=== PATIENT | female | born 1935 ===

== ENCOUNTER 2021-11-27 05:54 | Observation (INO) ==
[~2021-11-27 05:54] MED LIST: HYDROmorphone 1 MG/1 ML SYRINGE IV PRN; Naloxone 0.4 mg VIAL 0.4 mg/ml 1 ml VIAL IV PRN; Ondansetron 4 mg VIAL 2 MG/ML 2 ml VIAL IV PRN; fentaNYL 100 mcg/2 ml 50 MCG/ML VIAL IV PRN
[2021-11-27] MEDS ORDERED: Buffered Lidocaine 1% SYRIN 1 ml INTRADERM ONE (06:00)
[2021-11-27] MEDS ORDERED: Lactated Ringers 1000 ml BAG 1,000 ML IV SCH ×2 (06:00→11:00)
[2021-11-27] MEDS ORDERED: ceFAZolin 2 GM PREMIX 2 GM/50 ML BAG ONE (06:20)
[2021-11-27 06:36] LABS: Activated Partial Thrombo Time 29.4 seconds (26.0-38.0); INR 0.87 (0.89-1.11)
[2021-11-27] MEDS ORDERED: Vancomycin 1,000 MG VIAL ONE (06:47)
[2021-11-27] MEDS ORDERED: Lidocaine 1% MPF 5 ML VIAL ONE (06:57)
[2021-11-27] MEDS ORDERED: Lidocaine 2% PF 5 ML VIAL ONE (07:00)
[2021-11-27] MEDS ORDERED: fentaNYL 250 mcg/5 ml 50 MCG/ML 5 ml VIAL (250 MCG) ONE (07:00)
[2021-11-27] MEDS ORDERED: Propofol 10 MG/ML 20 ML BTL ONE ×2 (07:00→09:10)
[2021-11-27] MEDS ORDERED: Dexamethasone IV 4 MG/ML VIAL 1 ml VIAL ONE (07:06)
[2021-11-27] MEDS ORDERED: ROPIVACAINE 5 MG/ML 30 ML BTL (0.5%) ONE (07:08)
[2021-11-27] MEDS ORDERED: ceFAZolin VIAL VIAL ONE (08:14)
[2021-11-27] MEDS ORDERED: Midazolam 2 mg/2 ml VIAL 1 mg/ml 2 ml VIAL (2 mg) ONE (09:25)
[2021-11-27] MEDS ORDERED: Ondansetron ODT 4 mg TAB 4 MG TAB PO PRN (10:30)
[2021-11-27] MEDS ORDERED: Lactulose 30 ml UDC PO PRN (10:30)
[2021-11-27] MEDS ORDERED: Magnesium Hydroxide LIQ 30 ML UDC PO PRN (10:30)
[2021-11-27] MEDS ORDERED: Ondansetron 4 mg VIAL 2 MG/ML 2 ml VIAL IV PRN (10:30)
[2021-11-27] MEDS ORDERED: fentaNYL 100 mcg/2 ml 50 MCG/ML VIAL ONE (11:21)
[2021-11-27] MEDS ORDERED: HYDROmorphone 1 MG/1 ML SYRINGE ONE (11:48)
[2021-11-27] MEDS: Morphine 2 MG/ML SYRINGE IV PRN (13:18)
[2021-11-27] MEDS: ceFAZolin 1 GM ADVAN 1 GM in NS 0.9% 50 ML 50 ML IVPB SCH ×2 (16:11→23:56)
[2021-11-27] MEDS: Magnesium Hydroxide LIQ 30 ML UDC PO SCH (20:15)
[2021-11-27] MEDS: Sodium Chloride 2% OPTH.SOL 15 ML BTL BOTH EYES SCH (22:06)
[2021-11-28] MEDS: Morphine 2 MG/ML SYRINGE IV PRN (02:46)
[2021-11-28 05:24] LABS: Hematocrit 28 % (35-47); Hemoglobin 9.2 g/dL (12.0-16.0); Mean Platelet Volume 8.4 fL (7.4-10.4); Platelet Count 214 10^3/uL (150-450)
[2021-11-28 05:53] LABS: Calcium 8.4 mg/dL (8.6-10.3); Potassium 4.1 mmol/L (3.5-5.0); eGFR CKD-EPI 90.6 (>60)
[2021-11-28] MEDS: ceFAZolin 1 GM ADVAN 1 GM in NS 0.9% 50 ML 50 ML IVPB SCH (07:39)
[2021-11-28] MEDS: Magnesium Hydroxide LIQ 30 ML UDC PO SCH (07:42)
[2021-11-28] MEDS: Sodium Chloride 2% OPTH.SOL 15 ML BTL BOTH EYES SCH (07:46)
[2021-11-28] MEDS ORDERED: Vitamin THERAPEUTIC TAB PO SCH (09:00)
[2021-11-28 11:23] VITALS: BP 133/62
== END 2021-11-28 17:30 | disposition home or self-care (01) ==
LOC: INTOOBSV 05:54 → AA 05:54 → SSU 13:13
PROVIDERS: ADMIT Orthopaedic Surgery; ATTEND Orthopaedic Surgery